=== PATIENT | female | born 1945 | race Hispanic/Latino ===

== ENCOUNTER 2021-09-28 08:41 | Outpatient (CLI) | payer MEDICARE ==
[~2021-09-28 08:41] MED LIST: Gadobenate Dimeglumine 529 MG/1 ML (20ML VIAL) ONE
== END 2021-09-28 08:42 | disposition home or self-care (01) ==
LOC: CSHMRI 08:41
PROVIDERS: ATTEND Family Medicine
DX: M54.12 Radiculopathy, cervical region (principal); M54.16 Radiculopathy, lumbar region; M47.812 Spondylosis without myelopathy or radiculopathy, cervical region; E07.9 Disorder of thyroid, unspecified; M47.816 Spondylosis without myelopathy or radiculopathy, lumbar region; Z98.890 Other specified postprocedural states
CPT/HCPCS: 72040; 72141; 72158; A9577

== ENCOUNTER 2021-10-12 12:30 | Outpatient (CLI) | payer MEDICARE, OTHER | END 2021-10-12 12:31 | disposition home or self-care (01) | LOC: CSHULT 12:30 | PROVIDERS: ATTEND Family Medicine | DX: M79.605 Pain in left leg (principal); R22.42 Localized swelling, mass and lump, left lower limb; E04.1 Nontoxic single thyroid nodule | CPT/HCPCS: 76536 ==

== ENCOUNTER 2021-10-18 11:00 | Outpatient (CLI) | payer MEDICARE | END 2021-10-18 11:01 | disposition home or self-care (01) | LOC: CSHMRI 11:00 | PROVIDERS: ATTEND Family Medicine | DX: R22.42 Localized swelling, mass and lump, left lower limb (principal); M94.8X6 Other specified disorders of cartilage, lower leg ==